=== PATIENT | male | born 2005 | race Caucasian/White ===

== ENCOUNTER 2023-02-25 18:07 | Emergency (ER) | payer MEDICAID ==
[~2023-02-25] VITALS: Ht 182.9 cm; Wt 122.7 kg
[2023-02-25] MEDS ORDERED: prednisone 10mg tablet PO ONE (19:30)
[2023-02-25] MEDS ORDERED: albuterol 2.5 MG/3 ML nebule NEB ONE (19:30)
[2023-02-25 19:40] VITALS: PULSE 83; RESP 16; O2SAT 98
[2023-02-25 19:46] VITALS: PULSE 90; RESP 16; O2SAT 100
[2023-02-25 20:30] VITALS: BP 151/59; PULSE 62; RESP 18; TEMP 98; O2SAT 100
[2023-02-25] MEDS ORDERED: ALBU18HF2 INH (20:30)
[2023-02-25] MEDS ORDERED: PRED20TA PO (20:30)
== END 2023-02-25 20:31 | disposition home or self-care (01) ==
LOC: ER 18:08
DX: J45.901 Unspecified asthma with (acute) exacerbation (principal)
CPT/HCPCS: 94640; 99283; J7512; 94760

== ENCOUNTER 2023-07-22 13:02 | Emergency (ER) | payer MEDICAID ==
[~2023-07-22] VITALS: Ht 182.9 cm; Wt 118.2 kg
[~2023-07-22 13:02] MED LIST: ALBU18HF2 INH
[2023-07-22 15:10] VITALS: TEMP 97.8
[2023-07-22] MEDS ORDERED: ketorolac trometh. 30mg/ml inj. IV ONE (16:40)
[2023-07-22] MEDS: ketorolac tromethamine 15mg/ml inj. IV ONE (17:13)
[2023-07-22] MEDS: metoclopramide 5 mg/ml inj IV ONE (17:13)
[2023-07-22] MEDS: diphenhydrAMINE 50 mg/ml inj IV ONE (17:13)
[2023-07-22] MEDS: normal saline 1000ml 1,000 ML IV ONE (17:26)
[2023-07-22] MEDS ORDERED: ONDA8TAB13 PO (18:28)
[2023-07-22] MEDS ORDERED: BUTA-245 PO (18:28)
[2023-07-22 18:36] VITALS: BP 100/54; PULSE 47; RESP 9; O2SAT 100
== END 2023-07-22 19:13 | disposition home or self-care (01) ==
LOC: ER 13:02
DX: R51.9 Headache, unspecified (principal); R11.2 Nausea with vomiting, unspecified
CPT/HCPCS: 70450; 93005; 96361; 96374; 96375; 99285; J1200; J1885; J2765; J7030; A4615